=== PATIENT | male | born 1935 | race Caucasian/White ===

== ENCOUNTER 2022-11-02 18:33 | Emergency (ER) | payer BC, MEDICARE ==
[~2022-11-02] VITALS: Ht 180.3 cm; Wt 74.8 kg
[2022-11-02 18:56] VITALS: BP 97/56
[2022-11-02] MEDS ORDERED: NACL 0.9% 1,000 ML IV ONE (19:15)
[2022-11-02] MEDS ORDERED: DILTIAZEM 25 MG/5 ML VIAL IVP ONE ×2 (19:15→20:39)
[2022-11-02 19:40] LABS: BASOPHILS # (AUTO) 0.1 K/uL (0.00-0.22); BASOPHILS % (AUTO) 0.8 % (0.0-2.0); EOSINOPHILS # (AUTO) 0.1 K/uL (0-0.4); EOSINOPHILS % (AUTO) 1.1 % (0.0-4.0); HEMATOCRIT 29.6 % (36-52); HEMOGLOBIN 10.2 g/dL (12.0-18.0); LYMPHOCYTES # (AUTO) 0.8 K/uL (2.0-11.5); LYMPHOCYTES % (AUTO) 8.8 % (20.5-51.1); MEAN CORPUSCULAR HEMOGLOBIN 35 pg (27-31); MEAN CORPUSCULAR HGB CONC 34 g/dL (33-37); MONOCYTES % (AUTO) 11.2 % (1.7-9.3); NEUTROPHILS # (AUTO) 7.3 K/uL (1.8-7.7); NEUTROPHILS % (AUTO) 78.1 % (42.2-75.2); PLATELET COUNT (AUTO) 242 K/uL (140-450); RED BLOOD CELL COUNT(AUTO) 2.87 MIL/uL (4.20-6.10); RED CELL DISTRIBUTION WIDTH 15.1 % (11.6-13.7); WHITE BLOOD COUNT (AUTO) 9.3 K/uL (4.8-10.8)
--- NOTE | 2022-11-02 19:51 | NUR ---
Covid and flu swab sent to lab.
[2022-11-02 20:01] LABS: ALBUMIN 2.3 g/dL (3.4-5.0); ASPARTATE AMINOTRANSFERASE 14 U/L (15-37); CARBON DIOXIDE 30.7 mmol/L (21-32); CHLORIDE 102 mmol/L (98-107); CREATININE 1.7 mg/dL (0.6-1.3); GLUCOSE 138 mg/dL (74-106); SODIUM SERUM 142 mmol/L (136-145); TOTAL BILIRUBIN 1.9 mg/dL (0.0-1.0); UREA NITROGEN, BLOOD 25 mg/dL (7-18)
[2022-11-02 20:04] LABS: POTASSIUM 2.7 mmol/L (3.5-5.1)
[2022-11-02 20:05] LABS: LIPASE 31 U/L (73-393)
--- NOTE | 2022-11-02 20:39 | NUR ---
EKG performed at by Mckenzie JEROME. Physician given copy of EKG for review. As well asked if pt still needs cardizem due to new EKG results. Dr. Apple stated to still give Cardizem IV push.
--- NOTE | 2022-11-02 20:51 | NUR ---
Pt unable to urinate at this time. Urinal at bedside.
[2022-11-02] MEDS ORDERED: POTASSIUM CHLORIDE 10 MEQ TABER PO ONE ×3 (20:55→22:13)
[2022-11-02] MEDS ORDERED: DILTIAZEM 30 MG TAB PO ONE (20:55)
[2022-11-02 21:11] LABS: MAGNESIUM 1.5 mg/dL (1.8-2.4); PHOSPHORUS 2.9 mg/dL (2.5-4.9)
--- NOTE | 2022-11-02 22:05 | NUR ---
Pt back from CT. VSS. Pt is A&Ox4. Has no c/o at this time. Bed in lowest position.
[2022-11-03] MEDS ORDERED: NACL 0.9% 1,000 ML IV ONE (02:45)
--- NOTE | 2022-11-03 02:55 | NUR ---
Urine collected and sent to lab.
[2022-11-03] MEDS ORDERED: AMPICILLIN/SULBACTAM 3 GM in NACL 0.9% 100 ML IV ONE (03:00)
[2022-11-03 03:02] LABS: APPEARANCE,URINE CLEAR (CLEAR); BILIRUBIN,URINE 1+ (NEGATIVE); BLOOD, URINE NEGATIVE (NEGATIVE); COLOR,URINE DARK YELLOW (YELLOW); LEUKOCYTE ESTERASE ,URINE NEGATIVE (NEGATIVE); NITRITE, URINE NEGATIVE (NEGATIVE); UGLUCOSE NEGATIVE (NEGATIVE)
[2022-11-03] MEDS ORDERED: AMPICILLIN/SULBACTAM 3 GM VIAL ONE (03:11)
--- NOTE | 2022-11-03 04:30 | NUR ---
Pt aware he will be transferred to [place]. Waiting for bed to become available and transportation arrangements.
--- NOTE | 2022-11-03 05:19 | NUR ---
Pt resting in bed with no s/s of distress. Pt is A&Ox4. All meds have been given at this time. Pt has no c/o. Bed in lowest position.
--- NOTE | 2022-11-03 06:52 | NUR ---
Pt aware that we are currently still waiting for a bed to become available. Offered pt breakfast in the mean time and pt stated he would like breakfast. Will call dietary for breakfast tray.
--- NOTE | 2022-11-03 06:55 | NUR ---
Cardiac diet placed and dietary aware of order and they stated they will bring breakfast tray at 0730
--- NOTE | 2022-11-03 07:30 | NUR ---
Assumed care of pt. Pt resting comfortably in bed. Denies any complaints. Pt aware we are waiting for a bed to become available to transer to .
--- NOTE | 2022-11-03 07:43 | NUR ---
F/C urine output 550ml
--- NOTE | 2022-11-03 08:02 | NUR ---
Pt provided with breakfast tray.
--- NOTE | 2022-11-03 09:21 | NUR ---
Paper transfer consent signed by pt.
[2022-11-03] MEDS ORDERED: SENNA 8.6 MG TAB PO ONE (09:25)
--- NOTE | 2022-11-03 12:20 | NUR ---
Pt provided with lunch tray.
[2022-11-03 15:00] VITALS: BP 113/70
--- NOTE | 2022-11-03 15:06 | NUR ---
Patient to be transferred to [facility]. Is being transferred due to HIGHER LEVEL OF CARE. Receiving facility has accepting physician and available space. ER physician has signed transfer form. Patient or responsible democrat has agreed to transfer and signed form. Patient belongings inventoried and will be sent with patient. Copy of nursing notes, lab reports, EKG, Physicians Orders and X-rays to be sent with patient. Report called to LUKASZ JEROME at receiving facility. [facility] ambulance service has been called for transfer. ETA is 1600. MD PACK ADMITTING
--- NOTE | 2022-11-03 15:54 | NUR ---
amr here for transport to [place]
--- NOTE | 2022-11-03 16:00 | NUR ---
Report given to EMS. VSS. Pt has all belongings.
== END 2022-11-03 15:54 | disposition short-term general hospital (02) ==
LOC: MED 18:33
DX: I48.91 Unspecified atrial fibrillation (principal); Z20.822 Contact with and (suspected) exposure to COVID-19; E87.6 Hypokalemia; K64.9 Unspecified hemorrhoids; E86.0 Dehydration; L03.116 Cellulitis of left lower limb; L03.115 Cellulitis of right lower limb; I50.9 Heart failure, unspecified; J44.9 Chronic obstructive pulmonary disease, unspecified
CPT/HCPCS: 36415; 71045; 71275; 80053; 81003; 83605; 83690; 83735; 83880; 84100; 84484; 85025; 85379; 87040; 87426; 87804; 96365; 96366; 96368; 99291; J0295; J3490; Q9967

== ENCOUNTER 2024-02-14 20:23 | Inpatient (IN) | payer MEDICARE ==
[~2024-02-14] VITALS: Ht 182.9 cm; Wt 54.4 kg
[2024-02-14 20:23] VITALS: BP 147/80; PULSE 97; RESP 19; TEMP 97.7; O2SAT 78
[2024-02-14 21:43] VITALS: PULSE 103; RESP 21; O2SAT 99
[2024-02-14] MEDS: ALBUTEROL 0.083% 2.5 MG/3 ML NEBU INH ONE (21:47)
[2024-02-14] MEDS: IPRATROPIUM 0.02% 0.5 MG/2.5 ML NEBU INH ONE (21:47)
[2024-02-14 22:21] LABS: BASOPHILS # (AUTO) 0.1 K/uL (0.00-0.22); BASOPHILS % (AUTO) 0.6 % (0.0-2.0); EOSINOPHILS # (AUTO) 0.1 K/uL (0-0.4); EOSINOPHILS % (AUTO) 0.5 % (0.0-4.0); HEMOGLOBIN 12.9 g/dL (12.0-18.0); LYMPHOCYTES # (AUTO) 2.4 K/uL (2.0-11.5); LYMPHOCYTES % (AUTO) 9.8 % (20.5-51.1); MEAN CORPUSCULAR HEMOGLOBIN 34 pg (27-31); MEAN CORPUSCULAR HGB CONC 34 g/dL (33-37); MONOCYTES # (AUTO) 1.4 K/uL (0.8-1.0); NEUTROPHILS % (AUTO) 83.1 % (42.2-75.2); PLATELET COUNT (AUTO) 305 K/uL (140-450); RED CELL DISTRIBUTION WIDTH 15.5 % (11.6-13.7); WHITE BLOOD COUNT (AUTO) 24.1 K/uL (4.8-10.8)
[2024-02-14 22:36] LABS: ANION GAP 12.9 (8-16); CALCIUM 8.7 mg/dL (8.5-10.1); CARBON DIOXIDE 26.9 mmol/L (21-32); CHLORIDE 103 mmol/L (98-107); CREATININE 1.4 mg/dL (0.6-1.3); GLUCOSE 110 mg/dL (74-106); POTASSIUM 3.8 mmol/L (3.5-5.1); SODIUM SERUM 139 mmol/L (136-145); UREA NITROGEN, BLOOD 24 mg/dL (7-18)
[2024-02-14 22:39] LABS: INR 0.99 (0.8-1.2); PARTIAL THROMBOPLASTIN TIME 24.9 secs (22-35.6); PROTHROMBIN TIME 10.4 secs (10.8-13.4)
[2024-02-14 23:13] LABS: BLOOD GAS PCO2 32.2 mmHg (35-45); BLOOD GAS PH 7.432 (7.35-7.45); BLOOD GAS PO2 110.9 mmHg (75-100)
[2024-02-14 23:14] LABS: BLOOD GAS BASE EXCESS -2.4 mmol/L (-2.0-2.0); BLOOD GAS O2 SAT% 98.1 % (92.0-98.5)
[2024-02-14 23:38] LABS: LACTIC ACID 1.9 mmol/L (0.4-2.0)
[2024-02-14 23:55] LABS: APPEARANCE,URINE CLEAR (CLEAR); BILIRUBIN,URINE 1+ (NEGATIVE); BLOOD, URINE 1+ (NEGATIVE); COLOR,URINE YELLOW (YELLOW); LEUKOCYTE ESTERASE ,URINE 1+ (NEGATIVE); NITRITE, URINE POSITIVE (NEGATIVE); PROTEIN,URINE 2+ (NEGATIVE); UGLUCOSE NEGATIVE (NEGATIVE); UROBILINOGEN,URINE 0.2 EU/dL (0.2 - 1)
[2024-02-14 23:58] LABS: ICTOTEST POSITIVE (NEGATIVE)
[2024-02-14 23:59] LABS: BACTERIA,URINE >30 (MANY) /HPF (None Seen); RBC,URINE 11-20 (MOD) /HPF (0-5); WBC,URINE TOO MANY TO COUNT /HPF (0-5)
[2024-02-15] LABS: MUCUS,URINE 1+ /LPF (None Seen); SQUAMOUS EPITHELIAL CELL,UR 0-3 (FEW) /LPF (0-3 (FEW))
[2024-02-15] MEDS ORDERED: cefTRIAXone 1,000 MG VIAL ONE (00:22)
[2024-02-15] MEDS ORDERED: ONDANSETRON 4 MG/2 ML VIAL IVP PRN (03:00)
[2024-02-15] MEDS ORDERED: ACETAMINOPHEN 325 MG TAB PO PRN (03:00)
[2024-02-15] MEDS ORDERED: NALO4SPR3 NS (04:37)
[2024-02-15] MEDS ORDERED: PANT20EC18 PO (04:37)
[2024-02-15] MEDS ORDERED: DILT240C10 PO (04:37)
[2024-02-15] MEDS ORDERED: FLUT1BLS13 INH (04:37)
[2024-02-15] MEDS ORDERED: ALBU3SOL83 NEB (04:37)
[2024-02-15] MEDS ORDERED: TAMS0.4C97 PO (04:37)
[2024-02-15] MEDS ORDERED: TIOT4MIS INH (04:37)
[2024-02-15] MEDS ORDERED: ATOR20TA40 PO (04:37)
[2024-02-15] MEDS ORDERED: ALBU0.0912 IH (04:41)
[2024-02-15] MEDS ORDERED: ACET-2619 PO (04:41)
[2024-02-15] MEDS ORDERED: MIRABULK PO (04:41)
[2024-02-15] MEDS ORDERED: PRON INH (04:41)
[2024-02-15] MEDS ORDERED: PIPERACILLIN/TAZOBACTAM 3.375 GM in DEXTROSE 5% 50 ML IV SCH (05:00)
[2024-02-15] MEDS ORDERED: PIPERACILLIN/TAZOBACTAM 3.375 GM VIAL IV ONE (05:16)
[2024-02-15] MEDS: NACL 0.9% 1,000 ML IV SCH (05:23)
[2024-02-15] MEDS: PIPERACILLIN/TAZOBACTAM 3.375 GM in DEXTROSE 5% 50 ML IV SCH (05:23)
[2024-02-15 08:12] VITALS: BP 106/76; PULSE 80; PULSE 97; RESP 18; TEMP 97.5; O2SAT 94
[2024-02-15 08:53] VITALS: O2SAT 96
[2024-02-15] MEDS ORDERED: ENOXAPARIN 40 MG/0.4 ML SYR SUBQ SCH (09:00)
[2024-02-15] MEDS ORDERED: ENOXAPARIN 30 MG/0.3 ML SYR SUBQ SCH (09:00)
[2024-02-15] MEDS: PANTOPRAZOLE 40 MG INJ VIAL IVP SCH (09:15)
[2024-02-15 12:31] LABS: BASOPHILS # (AUTO) 0.1 K/uL (0.00-0.22); BASOPHILS % (AUTO) 0.7 % (0.0-2.0); EOSINOPHILS # (AUTO) 0.1 K/uL (0-0.4); EOSINOPHILS % (AUTO) 0.8 % (0.0-4.0); HEMATOCRIT 34.9 % (36-52); LYMPHOCYTES # (AUTO) 1.3 K/uL (2.0-11.5); LYMPHOCYTES % (AUTO) 9.2 % (20.5-51.1); MEAN CORPUSCULAR HEMOGLOBIN 35 pg (27-31); MEAN CORPUSCULAR HGB CONC 34 g/dL (33-37); MEAN CORPUSCULAR VOLUME 100.7 fL (80-94); MONOCYTES # (AUTO) 1.6 K/uL (0.8-1.0); MONOCYTES % (AUTO) 10.9 % (1.7-9.3); NEUTROPHILS # (AUTO) 11.3 K/uL (1.8-7.7); NEUTROPHILS % (AUTO) 78.4 % (42.2-75.2); PLATELET COUNT (AUTO) 266 K/uL (140-450); RED BLOOD CELL COUNT(AUTO) 3.47 MIL/uL (4.20-6.10); RED CELL DISTRIBUTION WIDTH 15.4 % (11.6-13.7); WHITE BLOOD COUNT (AUTO) 14.5 K/uL (4.8-10.8)
[2024-02-15 12:48] LABS: ALANINE AMINOTRANSFERASE 10 U/L (12-78); ALBUMIN 2.6 g/dL (3.4-5.0); ALKALINE PHOSPHATASE 114 U/L (50-136); ANION GAP 11.5 (8-16); ASPARTATE AMINOTRANSFERASE 14 U/L (15-37); CALCIUM 8.3 mg/dL (8.5-10.1); CARBON DIOXIDE 28.3 mmol/L (21-32); CHLORIDE 104 mmol/L (98-107); CREATININE 1.5 mg/dL (0.6-1.3); GLUCOSE 141 mg/dL (74-106); POTASSIUM 3.8 mmol/L (3.5-5.1); SODIUM SERUM 140 mmol/L (136-145); TOTAL PROTEIN, SERUM 5.6 g/dL (6.4-8.2); UREA NITROGEN, BLOOD 24 mg/dL (7-18)
[2024-02-15 16:00] VITALS: BP 102/73; PULSE 97; RESP 18; TEMP 98.7; O2SAT 95
[2024-02-15 20:00] VITALS: BP 103/61; PULSE 97; PULSE 98; RESP 18; TEMP 97.8; O2SAT 94; O2SAT 95
[2024-02-15 20:26] VITALS: PULSE 96; RESP 18; O2SAT 94
[2024-02-16 01:42] VITALS: O2SAT 95
[2024-02-16 04:00] VITALS: BP 105/70; PULSE 91; RESP 18; TEMP 97.8; O2SAT 93
[2024-02-16 06:01] LABS: BASOPHILS # (AUTO) 0.1 K/uL (0.00-0.22); BASOPHILS % (AUTO) 1.2 % (0.0-2.0); EOSINOPHILS # (AUTO) 0.3 K/uL (0-0.4); HEMATOCRIT 34.3 % (36-52); LYMPHOCYTES # (AUTO) 1.3 K/uL (2.0-11.5); LYMPHOCYTES % (AUTO) 12.4 % (20.5-51.1); MEAN CORPUSCULAR HEMOGLOBIN 35 pg (27-31); MEAN CORPUSCULAR HGB CONC 35 g/dL (33-37); MEAN CORPUSCULAR VOLUME 100.5 fL (80-94); MONOCYTES # (AUTO) 1.3 K/uL (0.8-1.0); MONOCYTES % (AUTO) 12.3 % (1.7-9.3); NEUTROPHILS # (AUTO) 7.5 K/uL (1.8-7.7); NEUTROPHILS % (AUTO) 71.1 % (42.2-75.2); PLATELET COUNT (AUTO) 250 K/uL (140-450); RED BLOOD CELL COUNT(AUTO) 3.41 MIL/uL (4.20-6.10); RED CELL DISTRIBUTION WIDTH 15.4 % (11.6-13.7); WHITE BLOOD COUNT (AUTO) 10.5 K/uL (4.8-10.8)
[2024-02-16 06:31] LABS: ANION GAP 14.8 (8-16); CALCIUM 8.6 mg/dL (8.5-10.1); CHLORIDE 106 mmol/L (98-107); CREATININE 1.5 mg/dL (0.6-1.3); GLUCOSE 90 mg/dL (74-106); POTASSIUM 3.8 mmol/L (3.5-5.1); SODIUM SERUM 142 mmol/L (136-145); UREA NITROGEN, BLOOD 25 mg/dL (7-18)
[2024-02-16 08:00] VITALS: BP 106/58; PULSE 84; PULSE 98; RESP 18; TEMP 97.6; TEMP 97.8; O2SAT 90
[2024-02-16] MEDS: TAMSULOSIN 0.4 MG CAP PO SCH (09:42)
[2024-02-16] MEDS ORDERED: VANCOMYCIN PER PHARMACY MC PRN (11:20)
[2024-02-16] MEDS: VANCOMYCIN 750 MG in DEXTROSE 5% 250 ML IV SCH (14:47)
[2024-02-16 20:00] VITALS: PULSE 98; RESP 18; TEMP 97.8; O2SAT 90
[2024-02-16 20:38] VITALS: PULSE 99; RESP 20; O2SAT 5
[2024-02-17] VITALS (8 sets, daily range): BP systolic 108–133; BP diastolic 57–84; PULSE 82–110; RESP 16–18; TEMP 97–98.7; O2SAT 90–100
[2024-02-17 05:54] LABS: CALCIUM 8.5 mg/dL (8.5-10.1); CARBON DIOXIDE 25.3 mmol/L (21-32); CHLORIDE 107 mmol/L (98-107); CREATININE 1.3 mg/dL (0.6-1.3); GLUCOSE 86 mg/dL (74-106); POTASSIUM 3.3 mmol/L (3.5-5.1); SODIUM SERUM 142 mmol/L (136-145); UREA NITROGEN, BLOOD 26 mg/dL (7-18)
[2024-02-17] MEDS: FLUCONAZOLE 100 MG TAB PO SCH (09:20)
[2024-02-17] MEDS: VANCOMYCIN 1,000 MG in DEXTROSE 5% 250 ML IV SCH (10:52)
[2024-02-17] MEDS: POTASSIUM CHLORIDE 10 MEQ TABER PO SCH (11:20)
[2024-02-17] MEDS: methylPREDNISolone SS 40 MG/ML VIAL IVP SCH (12:47)
[2024-02-18 04:00] VITALS: BP 115/78; PULSE 71; RESP 17; TEMP 98.6; O2SAT 95
[2024-02-18 05:37] LABS: BASOPHILS % (AUTO) 0.3 % (0.0-2.0); EOSINOPHILS % (AUTO) 0.1 % (0.0-4.0); HEMATOCRIT 32.2 % (36-52); HEMOGLOBIN 11.2 g/dL (12.0-18.0); LYMPHOCYTES # (AUTO) 0.8 K/uL (2.0-11.5); LYMPHOCYTES % (AUTO) 16.5 % (20.5-51.1); MEAN CORPUSCULAR HEMOGLOBIN 35 pg (27-31); MEAN CORPUSCULAR HGB CONC 35 g/dL (33-37); MEAN CORPUSCULAR VOLUME 100.7 fL (80-94); MONOCYTES # (AUTO) 0.3 K/uL (0.8-1.0); MONOCYTES % (AUTO) 5.8 % (1.7-9.3); NEUTROPHILS # (AUTO) 3.5 K/uL (1.8-7.7); NEUTROPHILS % (AUTO) 77.3 % (42.2-75.2); PLATELET COUNT (AUTO) 273 K/uL (140-450); RED CELL DISTRIBUTION WIDTH 15.5 % (11.6-13.7); WHITE BLOOD COUNT (AUTO) 4.5 K/uL (4.8-10.8)
[2024-02-18 06:42] LABS: ALANINE AMINOTRANSFERASE 7 U/L (12-78); ALBUMIN 2.6 g/dL (3.4-5.0); ALKALINE PHOSPHATASE 107 U/L (50-136); ASPARTATE AMINOTRANSFERASE 9 U/L (15-37); CALCIUM 8.5 mg/dL (8.5-10.1); CARBON DIOXIDE 21.1 mmol/L (21-32); CHLORIDE 106 mmol/L (98-107); CREATININE 1.3 mg/dL (0.6-1.3); GLUCOSE 139 mg/dL (74-106); POTASSIUM 4.1 mmol/L (3.5-5.1); SODIUM SERUM 142 mmol/L (136-145); TOTAL BILIRUBIN 0.9 mg/dL (0.0-1.0); TOTAL PROTEIN, SERUM 5.8 g/dL (6.4-8.2); UREA NITROGEN, BLOOD 29 mg/dL (7-18)
[2024-02-18 08:00] VITALS: BP 124/62; PULSE 84; RESP 16; RESP 17; TEMP 98.3; TEMP 98.5; O2SAT 94
[2024-02-18 14:09] VITALS: O2SAT 97
[2024-02-18] MEDS: DEXT 5% / NACL 0.45% 1,000 ML IV SCH (14:54)
[2024-02-18] MEDS: METOCLOPRAMIDE 10 MG/2 ML INJ VIAL IVP SCH (14:54)
[2024-02-18 16:00] VITALS: BP 122/86; PULSE 85; RESP 18; TEMP 98.6; O2SAT 94
[2024-02-18] MEDS: POLYETHYLENE GLYCOL 17 GM/PKT PO SCH (19:30)
[2024-02-18 19:40] VITALS: O2SAT 94
[2024-02-18 20:00] VITALS: BP 134/81; PULSE 94; RESP 18; TEMP 98.1; O2SAT 94
[2024-02-19] VITALS (7 sets, daily range): BP systolic 104–129; BP diastolic 70–81; PULSE 82–98; RESP 17–18; TEMP 96.9–98.5; O2SAT 84–98
[2024-02-19 05:51] LABS: BASOPHILS % (AUTO) 0.2 % (0.0-2.0); HEMOGLOBIN 11.5 g/dL (12.0-18.0); LYMPHOCYTES # (AUTO) 0.8 K/uL (2.0-11.5); LYMPHOCYTES % (AUTO) 9.5 % (20.5-51.1); MEAN CORPUSCULAR HEMOGLOBIN 35 pg (27-31); MEAN CORPUSCULAR HGB CONC 35 g/dL (33-37); MEAN CORPUSCULAR VOLUME 100.2 fL (80-94); MONOCYTES # (AUTO) 0.5 K/uL (0.8-1.0); MONOCYTES % (AUTO) 6.5 % (1.7-9.3); NEUTROPHILS % (AUTO) 83.8 % (42.2-75.2); PLATELET COUNT (AUTO) 261 K/uL (140-450); RED BLOOD CELL COUNT(AUTO) 3.29 MIL/uL (4.20-6.10); RED CELL DISTRIBUTION WIDTH 15.4 % (11.6-13.7); WHITE BLOOD COUNT (AUTO) 8.4 K/uL (4.8-10.8)
[2024-02-19 06:20] LABS: ALANINE AMINOTRANSFERASE 8 U/L (12-78); ALBUMIN 2.7 g/dL (3.4-5.0); ALKALINE PHOSPHATASE 104 U/L (50-136); ASPARTATE AMINOTRANSFERASE 3 U/L (15-37); CALCIUM 8.5 mg/dL (8.5-10.1); CARBON DIOXIDE 22.5 mmol/L (21-32); CHLORIDE 105 mmol/L (98-107); CREATININE 1.3 mg/dL (0.6-1.3); GLUCOSE 148 mg/dL (74-106); POTASSIUM 3.5 mmol/L (3.5-5.1); SODIUM SERUM 138 mmol/L (136-145); TOTAL BILIRUBIN 0.8 mg/dL (0.0-1.0); TOTAL PROTEIN, SERUM 5.9 g/dL (6.4-8.2); UREA NITROGEN, BLOOD 37 mg/dL (7-18)
[2024-02-19] MEDS: methylPREDNISolone SS 40 MG/ML VIAL IVP SCH (10:39)
[2024-02-19] MEDS: DILTIAZEM 120 MG CAPER PO SCH (10:40)
[2024-02-19] MEDS: ASPIRIN 81 MG TAB.CHEW PO SCH (10:40)
[2024-02-19] MEDS: SENNA 8.6 MG TAB PO SCH (10:41)
[2024-02-19] MEDS: POLYETHYLENE GLYCOL 17 GM/PKT PO SCH (10:42)
[2024-02-19] MEDS: ATORVASTATIN 20 MG TAB PO SCH (10:42)
[2024-02-19] MEDS: LUBIPROSTONE 24 MCG CAPSULE PO SCH (10:43)
[2024-02-19] MEDS: LINEZOLID 600MG PREMIX 300 ML IV SCH (21:12)
[2024-02-20] VITALS (8 sets, daily range): BP systolic 138; BP diastolic 90; PULSE 77–90; RESP 17–20; TEMP 96.7–98.5; O2SAT 84–100
[2024-02-20 06:42] LABS: BASOPHILS % (AUTO) 0.1 % (0.0-2.0); MONOCYTES # (AUTO) 0.7 K/uL (0.8-1.0); PLATELET COUNT (AUTO) 271 K/uL (140-450); RED BLOOD CELL COUNT(AUTO) 3.12 MIL/uL (4.20-6.10)
[2024-02-20 06:54] LABS: ALANINE AMINOTRANSFERASE 5 U/L (12-78); ALBUMIN 2.6 g/dL (3.4-5.0); ALKALINE PHOSPHATASE 94 U/L (50-136); ANION GAP 11.6 (8-16); ASPARTATE AMINOTRANSFERASE 7 U/L (15-37); CALCIUM 8.7 mg/dL (8.5-10.1); CARBON DIOXIDE 24.8 mmol/L (21-32); CHLORIDE 104 mmol/L (98-107); CREATININE 1.3 mg/dL (0.6-1.3); GLUCOSE 120 mg/dL (74-106); MAGNESIUM 2.2 mg/dL (1.8-2.4); POTASSIUM 3.4 mmol/L (3.5-5.1); SODIUM SERUM 137 mmol/L (136-145); TOTAL BILIRUBIN 0.9 mg/dL (0.0-1.0); TOTAL PROTEIN, SERUM 5.5 g/dL (6.4-8.2); UREA NITROGEN, BLOOD 41 mg/dL (7-18)
[2024-02-20 07:03] LABS: HEMATOCRIT 31.5 % (36-52); LYMPHOCYTES # (AUTO) 0.6 K/uL (2.0-11.5); MEAN CORPUSCULAR HEMOGLOBIN 35 pg (27-31); MEAN CORPUSCULAR HGB CONC 35 g/dL (33-37); MEAN CORPUSCULAR VOLUME 100.9 fL (80-94); MONOCYTES % (AUTO) 7.6 % (1.7-9.3); NEUTROPHILS # (AUTO) 7.3 K/uL (1.8-7.7); NEUTROPHILS % (AUTO) 85.4 % (42.2-75.2); RED CELL DISTRIBUTION WIDTH 15.7 % (11.6-13.7); WHITE BLOOD COUNT (AUTO) 8.6 K/uL (4.8-10.8)
[2024-02-20 08:43] LABS: LYMPHOCYTES % (AUTO) 6.9 % (20.5-51.1)
[2024-02-20] MEDS: ALBUTEROL 0.083% 2.5 MG/3 ML NEBU INH SCH (14:14)
[2024-02-20] MEDS: IPRATROPIUM 0.02% 0.5 MG/2.5 ML NEBU INH SCH (14:14)
[2024-02-20] MEDS: SENNA 8.6 MG TAB PO SCH (14:32)
[2024-02-20] MEDS: POTASSIUM CHLORIDE 20% 40 MEQ/15 ML UDC GT SCH (14:45)
[2024-02-20 15:54] LABS: FREE T4 (FREE THYROXINE) 0.82 ng/dL (0.76-1.46); THYROID STIMULATING HORMONE 1.28 uIU/mL (0.34-3.74)
[2024-02-20] MEDS: POTASSIUM CHLORIDE 10 MEQ TABER PO PRN (20:37)
[2024-02-21] VITALS (9 sets, daily range): BP systolic 108–129; BP diastolic 72–90; PULSE 56–102; RESP 16–18; TEMP 97–98.9; O2SAT 92–100
[2024-02-21 05:41] LABS: HEMATOCRIT 29.7 % (36-52); HEMOGLOBIN 10.4 g/dL (12.0-18.0); LYMPHOCYTES # (AUTO) 0.5 K/uL (2.0-11.5); LYMPHOCYTES % (AUTO) 7.9 % (20.5-51.1); MEAN CORPUSCULAR HEMOGLOBIN 35 pg (27-31); MEAN CORPUSCULAR HGB CONC 35 g/dL (33-37); MEAN CORPUSCULAR VOLUME 99.9 fL (80-94); MONOCYTES # (AUTO) 0.7 K/uL (0.8-1.0); MONOCYTES % (AUTO) 9.4 % (1.7-9.3); NEUTROPHILS # (AUTO) 5.8 K/uL (1.8-7.7); NEUTROPHILS % (AUTO) 82.7 % (42.2-75.2); PLATELET COUNT (AUTO) 250 K/uL (140-450); RED BLOOD CELL COUNT(AUTO) 2.97 MIL/uL (4.20-6.10); RED CELL DISTRIBUTION WIDTH 15.3 % (11.6-13.7)
[2024-02-21 05:55] LABS: ALANINE AMINOTRANSFERASE 8 U/L (12-78); ALBUMIN 2.7 g/dL (3.4-5.0); ALKALINE PHOSPHATASE 89 U/L (50-136); ASPARTATE AMINOTRANSFERASE 8 U/L (15-37); CALCIUM 8.6 mg/dL (8.5-10.1); CARBON DIOXIDE 25.3 mmol/L (21-32); CHLORIDE 103 mmol/L (98-107); CREATININE 1.4 mg/dL (0.6-1.3); GLUCOSE 127 mg/dL (74-106); MAGNESIUM 2.1 mg/dL (1.8-2.4); POTASSIUM 4.3 mmol/L (3.5-5.1); SODIUM SERUM 136 mmol/L (136-145); TOTAL BILIRUBIN 0.8 mg/dL (0.0-1.0); TOTAL PROTEIN, SERUM 5.4 g/dL (6.4-8.2); UREA NITROGEN, BLOOD 39 mg/dL (7-18)
[2024-02-21] MEDS ORDERED: POTASSIUM CHLORIDE 20% 40 MEQ/15 ML UDC GT SCH (09:00)
[2024-02-21] MEDS ORDERED: hydrALAZINE 20 MG/ML VIAL IVP PRN (18:50)
[2024-02-22 06:08] LABS: FOLIC ACID 4.7 ng/mL (>3.0)
[2024-02-22] MEDS ORDERED: predniSONE 20 MG TAB PO SCH (09:00)
== END 2024-02-21 23:15 | disposition short-term general hospital (02) | DRG 871 ==
LOC: MED 20:23 → MTU 02-15 03:03
PROVIDERS: ADMIT Family Medicine; ATTEND Family Medicine
DX: A41.81 Sepsis due to Enterococcus (principal); J96.21 Acute and chronic respiratory failure with hypoxia; N17.0 Acute kidney failure with tubular necrosis; S32.049A Unspecified fracture of fourth lumbar vertebra, initial encounter for closed fracture; N39.0 Urinary tract infection, site not specified; K56.7 Ileus, unspecified; J44.1 Chronic obstructive pulmonary disease with (acute) exacerbation; E46 Unspecified protein-calorie malnutrition; R64 Cachexia; Z68.1 Body mass index [BMI] 19.9 or less, adult; I50.9 Heart failure, unspecified; N18.30 Chronic kidney disease, stage 3 unspecified; I48.91 Unspecified atrial fibrillation; E78.5 Hyperlipidemia, unspecified; W18.30XA Fall on same level, unspecified, initial encounter; Z82.49 Family history of ischemic heart disease and other diseases of the circulatory system; Z82.5 Family history of asthma and other chronic lower respiratory diseases; Z79.51 Long term (current) use of inhaled steroids; Z79.01 Long term (current) use of anticoagulants; Y93.89 Activity, other specified; Y92.89 Other specified places as the place of occurrence of the external cause; Y99.8 Other external cause status; B95.2 Enterococcus as the cause of diseases classified elsewhere
CPT/HCPCS: 36415; 36600; 70450; 71045; 71275; 72125; 74018; 76770; 80048; 80053; 80202; 81001; 82607; 82746; 82803; 83605; 83735; 83880; 84100; 84439; 84443; 84484; 85025; 85379; 85610; 85730; 87040; 87081; 87086; 87186; 90471; 90715; 93005; 94640; 96374; 97112; 97116; 99285; C9113; J0696; J1644; J2020; J2543; J2765; J2920; J3370; J7060; J7613; J7644; Q0092; Q9967